=== PATIENT | male | born 1960 | race Caucasian/White ===

== ENCOUNTER 2018-11-18 17:05 | Emergency (ER) | payer BC ==
[2018-11-18] MEDS ORDERED: Sodium Chloride 0.9% 1,000 ML IV ONE (17:17)
[2018-11-18] MEDS ORDERED: Aspirin 81 MG Tab.Chew PO ONE (17:17)
--- NOTE | 2018-11-18 17:17 | EDM.PDOC ---
ED HPI GENERAL MEDICAL PROBLEM - General Chief Complaint: Chest Pain Stated Complaint: CHEST PAIN AND SOB Time Seen by Provider: 11/18/18 17:15 Source of Information: Reports: Patient History Limitations: Reports: No Limitations - History of Present Illness INITIAL COMMENTS - FREE TEXT/NARRATIVE: HISTORY AND PHYSICAL: History of present illness: Patient is a 58-year-old male who presents to the emergency room with complaints of a episode where he felt a "flash of light" and felt disoriented, emotional and weakness at approx 0900. He states he felt confused, he was unable to find words to communicate with his coworkers, and he was emotional and crying. States he was too weak to get up out of the chair. He took about 30 minutes, but then drove himself home. States he fell asleep around 0930 at home until his got off work at 5 PM. encouraged him to come evaluated. He currently has no symptoms of weakness but "just feels off". He denies any fever , chills, chest pain, shortness of breath or cough. Denies any abdominal pain, nausea, vomiting, diarrhea or constipation. He has been eating and drinking appropriately. Denies any headache, visual changes, amnesia or diaphoresis. Review of systems: As per history of present illness and below otherwise all systems reviewed and negative. Past medical history: As per history of present illness and as reviewed below otherwise noncontributory. Surgical history: As per history of present illness and as reviewed below otherwise noncontributory. Social history: See social history for further information Family history: As per history of present illness and as reviewed below otherwise noncontributory. Physical exam: General: Well-developed and well-nourished 58-year-old male. Alert and oriented. Nontoxic appearing and in no acute distress. HEENT: Atraumatic, normocephalic, pupils equal and reactive bilaterally, negative for conjunctival pallor or scleral icterus, mucous membranes moist, TMs normal bilaterally, throat clear, neck supple, nontender, trachea midline. No drooling or trismus noted. No meningeal signs. No hot potato voice noted. Lungs: Clear to auscultation, breath sounds equal bilaterally, chest nontender. Heart: S1S2, regular rate and rhythm without overt murmur Abdomen: Soft, nondistended, nontender. Negative for masses or hepatosplenomegaly. Negative for costovertebral tenderness. Pelvis: Stable nontender. Genitourinary: Deferred. Rectal: Deferred. Skin: Intact, warm, dry. No lesions or rashes noted. Extremities: Atraumatic, negative for cords or calf pain. Neurovascular unremarkable. Neuro: Awake, alert, oriented. Cranial nerves II through XII unremarkable. Cerebellum unremarkable. Motor and sensory unremarkable throughout. Exam nonfocal. Notes: NIH: 0, GCS: 15. Patient's vital signs are stable. He is alert and oriented. No neurological deficits. No weakness, slurred speech, facial droop noted. Patient did have a CT of his chest on 11/16/18 which showed several tiny pulmonary nodules bilaterally, hepatic cyst and hemangioma, otherwise unremarkable. He was seeing Suzie Flores at [facility] for chest congestion/ cough. He states he was on 2 weeks of antibiotics for this, Augmentin and amoxicillin. CT shows no acute findings. There is evidence of ethmoid and maxillary sinusitis. Vital signs are stable. Lab work is unremarkable. Diagnostic findings were shared with patient. We did talk about disposition including admission, he declines stating he would like to go home. He states he will have close follow-up with his primary caregiver. Patient will be discharged home with with understanding he will follow-up with PCP tomorrow, and return to the emergency room if any symptoms return or new symptoms develop. Diagnostics: CBC, CMP, UA, troponin, EKG, head CT Therapeutics: IV fluid, ASA, Rocephin Prescription: None Impression: Sinusitis Plan: 1. Please take an [id number] decongestant. 2. Tylenol and/or ibuprofen as needed for pain and fever management. 3. Make sure you drink plenty of fluids to prevent dehydration. 4. Follow-up with your primary caregiver in the next 1-2 days. Return to the ED as needed and as discussed. Definitive disposition and diagnosis as appropriate pending reevaluation and review of above. Chest Pain Score (Numeric/FACES): 4 - Related Data Allergies Allergy/AdvReac Type Severity Reaction Status Date / Time steroids Allergy Cannot Uncoded 11/29/15 16:21 Remember Home Meds: Home Meds Lisinopril 10 mg PO DAILY 11/18/18 [History] Past Medical History Neurological History: Reports: Other (See Below) Other Neuro History: menningitis - Past Surgical History GI Surgical History: Reports: Appendectomy, Cholecystectomy, Colonoscopy, EGD ED ROS GENERAL - Review of Systems Review Of Systems: ROS reveals no pertinent complaints other than HPI. ED EXAM, GENERAL - Physical Exam Exam: See Below (See dictation) Course - Vital Signs Last Recorded V/S: Last Vital Signs Temp 97.2 F 11/18/18 17:13 Pulse 86 11/18/18 19:33 Resp 16 11/18/18 19:33 BP 121/80 11/18/18 19:33 Pulse Ox 96 11/18/18 19:33 - Orders/Labs/Meds Orders: Active Orders 24 hr Category Date Time Status EKG Documentation Completion [RC] STAT Care 11/18/18 17:17 Active Labs: Laboratory Tests 11/18/18 11/18/18 11/18/18 Range/Units 17:24 17:24 17:53 WBC 8.10 (4.0-11.0) K/uL RBC 4.58 (4.50-5.90) M/uL Hgb 14.5 (13.0-17.0) g/dL Hct 40.8 (38.0-50.0) % MCV 89.1 (80.0-98.0) fL MCH 31.7 (27.0-32.0) pg MCHC 35.5 (31.0-37.0) g/dL RDW Std Deviation 42.7 (28.0-62.0) fl RDW Coeff of Linda 13 (11.0-15.0) % Plt Count 173 (150-400) K/uL MPV 10.00 (7.40-12.00) fL Neut % (Auto) 65.2 (48.0-80.0) % Lymph % (Auto) 26.2 (16.0-40.0) % Barron % (Auto) 5.1 (0.0-15.0) % Eos % (Auto) 3.1 (0.0-7.0) % Baso % (Auto) 0.4 (0.0-1.5) % Neut # (Auto) 5.3 (1.4-5.7) K/uL Lymph # (Auto) 2.1 (0.6-2.4) K/uL Barron # (Auto) 0.4 (0.0-0.8) K/uL Eos # (Auto) 0.3 (0.0-0.7) K/uL Baso # (Auto) 0.0 (0.0-0.1) K/uL Nucleated RBC % 0.0 /100WBC Nucleated RBCs # 0 K/uL Sodium 145 (136-148) mmol/L Potassium 3.8 (3.5-5.1) mmol/L Chloride 111 H (98-107) mmol/L Carbon Dioxide 22.5 (21.0-32.0) mmol/L BUN 18 (7.0-18.0) mg/dL Creatinine 0.9 (0.8-1.3) mg/dL Est Cr Clr Drug Dosing 87.28 mL/min Estimated GFR (MDRD) > 60.0 ml/min Glucose 133 H (74-106) mg/dL Calcium 9.4 (8.5-10.1) mg/dL Total Bilirubin 0.2 (0.2-1.0) mg/dL AST 12 L (15-37) IU/L ALT 18 (14-63) IU/L Alkaline Phosphatase 56 (46-116) U/L Troponin I < 0.050 (0.000-0.056) ng/mL Total Protein 6.9 (6.4-8.2) g/dL Albumin 3.4 (3.4-5.0) g/dL Globulin 3.5 (2.6-4.0) g/dL Albumin/Globulin Ratio 1.0 (0.9-1.6) Urine Color YELLOW Urine Appearance CLEAR Urine pH 6.0 (5.0-8.0) Ur Specific [place] >= 1.030 (1.001-1.035) Urine Protein NEGATIVE (NEGATIVE) mg/dL Urine Glucose (UA) NEGATIVE (NEGATIVE) mg/dL Urine Ketones NEGATIVE (NEGATIVE) mg/dL Urine Occult Blood NEGATIVE (NEGATIVE) Urine Nitrite NEGATIVE (NEGATIVE) Urine Bilirubin NEGATIVE (NEGATIVE) Urine Urobilinogen 0.2 (<2.0) EU/dL Ur Leukocyte Esterase NEGATIVE (NEGATIVE) Meds: Medications Discontinued Medications Generic Name Dose Route Start Last Admin Trade Name Freq PRN Reason Stop Dose Admin Aspirin 324 mg 11/18/18 17:17 11/18/18 17:41 Aspirin PO 11/18/18 17:18 324 mg ONETIME ONE Administration Sodium Chloride 1,000 mls @ 999 mls/hr 11/18/18 17:17 11/18/18 17:40 Normal Saline IV 11/18/18 18:17 999 mls/hr STAT ONE Administration Ceftriaxone Sodium/Dextrose 1 50 mls @ 100 mls/hr 11/18/18 19:09 11/18/18 19: 28 gm/ Premix IV 11/18/18 19:38 100 mls/hr ONETIME ONE Administration Departure - Departure Time of Disposition: 20:10 Disposition: Home, Self-Care 01 Clinical Impression: Sinusitis Qualifiers: Sinusitis location: ethmoidal Chronicity: acute Recurrence: non-recurrent Qualified Code(s): J01.20 - Acute ethmoidal sinusitis, unspecified Instructions: Sinusitis, Adult, [id number] Referrals: PCP,Unknown [Primary Care Provider] - Forms: ED Department Discharge Additional Instructions: The following information is given to patients seen in the emergency department who are being discharged to home. This information is to outline your options for follow-up care. We provide all patients seen in our emergency department with a follow-up referral. The need for follow-up, as well as the timing and circumstances, are variable depending upon the specifics of your emergency department visit. If you don't have a primary care physician on staff, we will provide you with a referral. We always advise you to contact your personal physician following an emergency department visit to inform them of the circumstance of the visit and for follow-up with them and/or the need for any referrals to a consulting specialist. The emergency department will also refer you to a specialist when appropriate. This referral assures that you have the opportunity for follow-up care with a specialist. All of these measure are taken in an effort to provide you with optimal care, which includes your follow-up. Under all circumstances we always encourage you to contact your private physician who remains a resource for coordinating your care. When calling for follow-up care, please make the office aware that this follow-up is from your recent emergency room visit. If for any reason you are refused follow-up, please contact the [facility] Emergency Department at and asked to speak to the emergency department charge nurse. [facility] [address] [place] [address] [facility] [address] [place] [address] 1. Please take an dzmn-ari-xmntray decongestant. 2. Tylenol and/or ibuprofen as needed for pain and fever management. 3. Make sure you drink plenty of fluids to prevent dehydration. 4. Follow-up with your primary caregiver in the next 1-2 days. Return to the ED as needed and as discussed. - My Orders Last 24 Hours: My Active Orders 11/18/18 17:17 EKG Documentation Completion [RC] STAT - Assessment/Plan Last 24 Hours: My Active Orders 11/18/18 17:17 EKG Documentation Completion [RC] STAT
--- NOTE | 2018-11-18 18:34 | CT ---
INDICATION: pain CT HEAD WITHOUT CONTRAST TECHNIQUE: Multiple axial CT images were performed through the head without intravenous contrast administration. COMPARISON: No previous studies are currently available for comparison. FINDINGS: No acute intracranial hemorrhage is identified. No extra-axial collections are evident and there is no mass effect or midline shift. Ventricles are normal in size and configuration. Brain parenchyma appears normal with unremarkable cerna-white differentiation. Osseous structures are within normal limits and no fractures are seen. Included portions of the paranasal sinuses show mucosal thickening within the ethmoid air cells and maxillary sinuses bilaterally consistent with sinusitis. The mastoid air cells are normally aerated. IMPRESSION: 1. No intracranial abnormality identified. 2. Ethmoid and maxillary sinusitis. SANDRA LANG MD [employer] Dictated by Glenn Lang MD @ 11/18/2018 6:30:22 PM Dictated by: Glenn Lang MD @ 11/18/2018 18:34:16 (Electronically Signed)
[2018-11-18 19:03] LABS: CHLORIDE,CL 111 mmol/L (98-107); SODIUM,NA 145 mmol/L (136-148)
[2018-11-18] MEDS ORDERED: cefTRIAXone 1 GM in Premix Bag 1 BAG IV ONE (19:09)
[2018-11-18 20:34] VITALS: BP 115/84
== END 2018-11-18 20:35 | disposition home or self-care (01) ==
LOC: MW.ED 17:05
DX: J01.20 Acute ethmoidal sinusitis, unspecified (principal); Z88.8 Allergy status to other drugs, medicaments and biological substances; Z79.899 Other long term (current) drug therapy
CPT/HCPCS: 36415; 70450; 80053; 81003; 84484; 85025; 93005; 96361; 96374; 99285; A9270; J0696; J7040; 99283

== ENCOUNTER 2021-03-02 16:20 | Emergency (ER) | payer SELFPAY ==
--- NOTE | 2021-03-02 16:57 | EDM.PDOC ---
ED HPI GENERAL MEDICAL PROBLEM - General Chief Complaint: ENT Problem Stated Complaint: RT EAR SWELLING Time Seen by Provider: 03/02/21 16:38 Source of Information: Reports: Patient History Limitations: Reports: No Limitations - History of Present Illness INITIAL COMMENTS - FREE TEXT/NARRATIVE: Patient is a 60-year-old male presents today for right ear pain. Patient states that he was cleaning his ear with a Q-tip and knows that the ear canals become swollen and painful. Patient denies swimming or setting of the water. Patient denies any change in hearing fever chills pain about his ear nausea vomiting or other symptoms. Right ear Pain Score (Numeric/FACES): 6 - Related Data Allergies Allergy/AdvReac Type Severity Reaction Status Date / Time steroids Allergy Cannot Uncoded 03/02/21 16:26 Remember Home Meds: Home Meds Lisinopril 10 mg PO DAILY 11/18/18 [History] Ciprofloxacin/Dexamethasone [Ciprodex Otic Susp] 4 drop OT BID 7 Days #1 bottle 03/02/21 [Rx] lisinopriL [Lisinopril] 10 mg PO DAILY 30 Days #30 tablet 03/02/21 [Rx] Past Medical History HEENT History: Reports: None Cardiovascular History: Reports: Hypertension Respiratory History: Reports: None Genitourinary History: Reports: None Musculoskeletal History: Reports: None Neurological History: Reports: Other (See Below) Other Neuro History: menningitis Psychiatric History: Reports: None Endocrine/Metabolic History: Reports: None Hematologic History: Reports: None Immunologic History: Reports: None Dermatologic History: Reports: None - Infectious Disease History Infectious Disease History: Reports: Chicken Pox - Past Surgical History Head Surgeries/Procedures: Reports: None GI Surgical History: Reports: Appendectomy, Cholecystectomy, Colonoscopy, EGD Social & Family History - Family History Family Medical History: No Pertinent Family History - Tobacco Use Tobacco Use Status *Q: Current Every Day Tobacco User Years of Tobacco use: 38 Packs/Tins Daily: 1 - Caffeine Use Caffeine Use: Reports: Coffee - Recreational Drug Use Recreational Drug Use: No ED ROS ENT - Review of Systems Review Of Systems: See Below Constitutional: Reports: No Symptoms HEENT: Reports: Ear Pain Respiratory: Reports: No Symptoms Endocrine: Reports: No Symptoms GI/Abdominal: Reports: No Symptoms : Reports: No Symptoms Musculoskeletal: Reports: No Symptoms Skin: Reports: No Symptoms Neurological: Reports: No Symptoms Psychiatric: Reports: No Symptoms Hematologic/Lymphatic: Reports: No Symptoms Immunologic: Reports: No Symptoms ED EXAM, ENT - Physical Exam Exam: See Below Exam Limited By: No Limitations General Appearance: Alert, WD/WN, No Apparent Distress Eye Exam: Bilateral Eye: EOMI, PERRL Ears: Canal Discharge, Canal Swelling Mouth/Throat: Normal Inspection, Normal Gums, Normal Lips Head: Atraumatic, Normocephalic Respiratory/Chest: No Respiratory Distress, Lungs Clear, Normal Breath Sounds Cardiovascular: Normal Peripheral Pulses, Regular Rate, Rhythm Neurological: Alert, Oriented, Normal Cognition, Normal Gait Course - Vital Signs Last Recorded V/S: Last Vital Signs Temp 97.4 F 03/02/21 16:27 Pulse 83 03/02/21 17:17 Resp 18 03/02/21 17:17 BP 136/87 03/02/21 17:17 Pulse Ox 96 03/02/21 17:17 - Orders/Labs/Meds Orders: Active Orders 24 hr Category Date Time Status Ciprofloxacin/Dexamethasone [Ciprodex Otic Susp] Med 03/02/21 17:45 Ordered 5 ml EARLF BID Medication Orders Ciprofloxacin/Dexamethasone (Ciprofloxacin/Dexamethasone 0.3-0.1% Otic Susp 7.5 Ml Bottle) 5 ml EARLF BID [facility] Meds: Medications Generic Name Dose Route Start Last Admin Trade Name Luke PRN Reason Stop Dose Admin Ciprofloxacin/Dexamethasone 5 ml 03/02/21 17:45 Ciprofloxacin/Dexamethasone 0.3-0.1% Otic Susp 7.5 Ml Bottle EARLF BID CARMEN - Re-Assessments/Exams Free Text/Narrative Re-Assessment/Exam: 03/02/21 17:42 Patient had a ear wick placed into his canal to help with the eardrops. Patient also has refill of his blood pressure medication lisinopril as he cannot see his PMD due to insurance reasons. Patient will be discharged and can follow-up with primary care physician or return to the ED. Departure - Departure Time of Disposition: 17:43 Disposition: Home, Self-Care 01 Condition: Good Clinical Impression: Otitis externa - Discharge Information *PRESCRIPTION DRUG MONITORING PROGRAM REVIEWED*: Not Applicable *COPY OF PRESCRIPTION DRUG MONITORING REPORT IN PATIENT MAXIMILIANO: Not Applicable Prescriptions: Ciprofloxacin/Dexamethasone [Ciprodex Otic Susp] 4 drop OT BID 7 Days #1 bottle lisinopriL [Lisinopril] 10 mg PO DAILY 30 Days #30 tablet Instructions: Otitis Externa Referrals: PCP,None [Primary Care Provider] - Forms: ED Department Discharge Additional Instructions: The following information is given to patients seen in the emergency department who are being discharged to home. This information is to outline your options for follow-up care. We provide all patients seen in our emergency department with a follow-up referral. The need for follow-up, as well as the timing and circumstances, are variable depending upon the specifics of your emergency department visit. If you don't have a primary care physician on staff, we will provide you with a referral. We always advise you to contact your personal physician following an emergency department visit to inform them of the circumstance of the visit and for follow-up with them and/or the need for any referrals to a consulting spec ialist. The emergency department will also refer you to a specialist when appropriate. This referral assures that you have the opportunity for follow-up care with a specialist. All of these measure are taken in an effort to provide you with optimal care, which includes your follow-up. Under all circumstances we always encourage you to contact your private physician who remains a resource for coordinating your care. When calling for follow-up care, please make the office aware that this follow-up is from your recent emergency room visit. If for any reason you are refused follow-up, please contact the [facility] Emergency Department at and asked to speak to the emergency department charge nurse. Please follow up with your primary care physician. If you do not have a primary care physician, see below: [facility] [address] [place] [id number] [facility] [address] [place] [address] You are seen today for pain in your right ear looks like you have an external ear infection which we will give eardrops. We placed a ear wick into the canal to help keep the canal open so that you can get the eardrops inside. I also refilled your prescription for your blood pressure. If you have any increased pain in your ear worsening symptoms please return to the ED. Sepsis Event Note (ED) - Evaluation Sepsis Screening Result: No Definite Risk - Focused Exam Vital Signs: Vital Signs Temp Pulse Resp BP Pulse Ox 03/02/21 17:17 83 18 136/87 96 03/02/21 16:27 97.4 F 84 18 155/83 H 98 - My Orders Last 24 Hours: My Active Orders 03/02/21 17:45 Ciprofloxacin/Dexamethasone [Ciprodex Otic Susp] 5 ml EARLF BID - Assessment/Plan Last 24 Hours: My Active Orders 03/02/21 17:45 Ciprofloxacin/Dexamethasone [Ciprodex Otic Susp] 5 ml EARLF BID Plan: Patient is a 58-year-old male presents today for right ear pain. Patient has no fevers chills or mastoid tenderness. Seems to be to the external ear. Will place patient on Ciprodex and reassess.
[2021-03-02] MEDS ORDERED: Ciprofloxacin/Dexamethasone 0.3-0.1% Otic Susp 7.5 ML Bottle EARLF SCH (17:45)
[2021-03-02 19:21] VITALS: BP 124/78; PULSE 82
== END 2021-03-02 18:21 | disposition home or self-care (01) ==
LOC: MW.ED 16:20
DX: H60.91 Unspecified otitis externa, right ear (principal); I10 Essential (primary) hypertension; Z88.8 Allergy status to other drugs, medicaments and biological substances; Z79.899 Other long term (current) drug therapy; Z72.0 Tobacco use
CPT/HCPCS: 99282; A9270

== ENCOUNTER 2022-11-07 12:17 | Emergency (ER) | payer MEDICAID ==
[2022-11-07 13:26] LABS: CORONAVIRUS COVID-19 NAA NEGATIVE (NEGATIVE); INFLUENZA A NAA NEGATIVE (NEGATIVE); INFLUENZA B NAA NEGATIVE (NEGATIVE)
[2022-11-07 15:02] VITALS: BP 122/82; PULSE 82
== END 2022-11-07 15:01 | disposition home or self-care (01) ==
LOC: MW.ED 12:17
DX: H10.89 Other conjunctivitis (principal); Z88.8 Allergy status to other drugs, medicaments and biological substances; Z79.899 Other long term (current) drug therapy; Z72.0 Tobacco use; Z20.822 Contact with and (suspected) exposure to COVID-19
CPT/HCPCS: 0240U; 99284; 99283

== ENCOUNTER 2023-08-15 12:27 | Emergency (ER) | payer MEDICARE, OTHER ==
[2023-08-15] MEDS ORDERED: Sodium Chloride 0.9% 10 ML Syringe FLUSH PRN (13:25)
[2023-08-15] MEDS ORDERED: diphenhydrAMINE 50 MG/ML SDV IVPUSH ONE (13:25)
[2023-08-15] MEDS ORDERED: Ketorolac 30 MG/ML SDV IVPUSH ONE (13:25)
[2023-08-15] MEDS ORDERED: Sodium Chloride 0.9% 1,000 ML IV ONE (13:25)
[2023-08-15] MEDS ORDERED: Sodium Chloride 0.9% 2.5 ML Syringe FLUSH PRN (13:25)
[2023-08-15] MEDS ORDERED: Metoclopramide 10 MG/2 ML SDV IVPUSH ONE (13:25)
[2023-08-15 13:40] LABS: BASOPHILS ABSOLUTE AUTO 0.04 K/uL (0.00-0.20); BASOPHILS PERCENT AUTO 0.4 % (0.0-1.0); EOSINOPHILS ABSOLUTE AUTO 0.29 K/uL (0.00-0.45); EOSINOPHILS PERCENT AUTO 2.9 % (0.0-6.0); HEMATOCRIT 40.6 % (42.0-52.0); HEMOGLOBIN 14.4 g/dL (14.0-18.0); IMMATURE GRAN ABSOLUTE AUTO 0.04 K/uL (0.00-0.05); IMMATURE GRAN PERCENT AUTO 0.4 % (0.0-0.4); LYMPHOCYTES ABSOLUTE AUTO 2.41 K/uL (1.00-4.80); LYMPHOCYTES PERCENT AUTO 24.3 % (24.0-44.0); MEAN CORPUSCULAR HGB CONC 35.5 g/dL (32.0-36.0); MEAN CORPUSCULAR VOLUME 87.3 fL (83.0-99.0); MEAN PLATELET VOLUME 9.9 fL (9.4-12.4); MONOCYTES ABSOLUTE AUTO 0.48 K/uL (0.00-0.80); MONOCYTES PERCENT AUTO 4.8 % (0.0-8.0); NEUTROPHILS ABSOLUTE AUTO 6.65 K/uL (1.80-7.70); NEUTROPHILS PERCENT AUTO 67.2 % (41.0-71.0); PLATELET COUNT,PLT 212 K/uL (150-400); RED BLOOD CELL COUNT 4.65 M/uL (4.52-5.90); WHITE BLOOD CELL COUNT,WBC 9.91 K/uL (3.9-11.3)
[2023-08-15 13:43] LABS: APPEARANCE,URINE CLEAR; BILIRUBIN,URINE NEGATIVE (NEGATIVE); COLOR,URINE YELLOW; GLUCOSE,URINE NEGATIVE (NEGATIVE); KETONES,URINE NEGATIVE (NEGATIVE); LEUKOCYTE ESTERASE,URINE NEGATIVE (NEGATIVE); NITRITE,URINE NEGATIVE (NEGATIVE); OCCULT BLOOD,URINE NEGATIVE (NEGATIVE); PROTEIN,URINE NEGATIVE (NEGATIVE); UROBILINOGEN,URINE 0.2 EU/dL (<2.0)
[2023-08-15 14:30] LABS: A/G RATIO 1.1 (0.9-1.6); ALBUMIN 3.6 g/dL (3.4-5.0); BILIRUBIN TOTAL 0.3 mg/dL (0.2-1.0); CALCIUM 9.3 mg/dL (8.5-10.1); CARBON DIOXIDE,CO2 25.5 mmol/L (21.0-32.0); EST CRCL DRUG DOSING (CG) 73.65 mL/min; POTASSIUM,K 4.2 mmol/L (3.5-5.1)
[2023-08-15 15:35] VITALS: BP 149/83; PULSE 81
== END 2023-08-15 15:34 | disposition home or self-care (01) ==
LOC: MW.ED 12:27
DX: G43.909 Migraine, unspecified, not intractable, without status migrainosus (principal); I10 Essential (primary) hypertension; Z79.899 Other long term (current) drug therapy; Z88.8 Allergy status to other drugs, medicaments and biological substances
CPT/HCPCS: 36415; 70450; 80053; 81003; 85025; 96361; 96374; 96375; 99284; J1200; J1885; J2765; J3490; J7030

== ENCOUNTER 2024-03-24 08:11 | Emergency (ER) | payer MEDICARE, OTHER ==
[2024-03-24] MEDS: diphenhydrAMINE 50 MG/ML SDV IVPUSH ONE (08:58)
[2024-03-24] MEDS: Proparacaine 0.5% Ophth Soln 15 ML Bottle EYELF STA (08:58)
[2024-03-24] MEDS: Metoclopramide 10 MG/2 ML SDV IVPUSH ONE (08:58)
[2024-03-24] MEDS: Sodium Chloride 0.9% 1,000 ML IV ONE (08:58)
[2024-03-24] MEDS: Sodium Chloride 0.9% 2.5 ML Syringe FLUSH PRN (08:59)
[2024-03-24] MEDS: Sodium Chloride 0.9% 10 ML Syringe FLUSH PRN (08:59)
[2024-03-24 09:19] LABS: BASOPHILS ABSOLUTE AUTO 0.03 K/uL (0.00-0.20); BASOPHILS PERCENT AUTO 0.3 % (0.0-1.0); EOSINOPHILS ABSOLUTE AUTO 0.13 K/uL (0.00-0.45); EOSINOPHILS PERCENT AUTO 1.1 % (0.0-6.0); HEMOGLOBIN 13.2 g/dL (14.0-18.0); IMMATURE GRAN ABSOLUTE AUTO 0.04 K/uL (0.00-0.05); IMMATURE GRAN PERCENT AUTO 0.3 % (0.0-0.4); LYMPHOCYTES ABSOLUTE AUTO 1.78 K/uL (1.00-4.80); LYMPHOCYTES PERCENT AUTO 15.6 % (24.0-44.0); MEAN CORPUSCULAR HEMOGLOBIN 30.6 pg (28.0-32.0); MEAN CORPUSCULAR HGB CONC 34.7 g/dL (32.0-36.0); MEAN PLATELET VOLUME 9.9 fL (9.4-12.4); MONOCYTES PERCENT AUTO 5.2 % (0.0-8.0); NEUTROPHILS ABSOLUTE AUTO 8.85 K/uL (1.80-7.70); NEUTROPHILS PERCENT AUTO 77.5 % (41.0-71.0); PLATELET COUNT,PLT 195 K/uL (150-400); RED BLOOD CELL COUNT 4.32 M/uL (4.52-5.90); WHITE BLOOD CELL COUNT,WBC 11.43 K/uL (3.9-11.3)
[2024-03-24 09:40] LABS: A/G RATIO 0.8 (0.9-1.6); ALBUMIN 3.2 g/dL (3.4-5.0); BILIRUBIN TOTAL 0.4 mg/dL (0.2-1.0); CALCIUM 8.5 mg/dL (8.5-10.1); CARBON DIOXIDE,CO2 26.7 mmol/L (21.0-32.0); CREATININE 0.9 mg/dL (0.8-1.3); EST CRCL DRUG DOSING (CG) 81.83 mL/min; POTASSIUM,K 3.7 mmol/L (3.5-5.1); PROTEIN TOTAL,TP 7.2 g/dL (6.4-8.2)
[2024-03-24] MEDS: Iopamidol 755 MG/ML 500 ML Multipack Bottle IVPUSH STA (10:47)
[2024-03-24] MEDS ORDERED: Naloxone 0.4 MG/ML SDV IVPUSH PRN (10:59)
[2024-03-24] MEDS: Morphine 4 MG/ML Syringe IVPUSH PRN (11:48)
[2024-03-24 11:52] VITALS: BP 155/73; PULSE 89
[2024-03-24] MEDS: Ampicillin/Sulbactam Na 3 GM in Sodium Chloride 0.9% 100 ML IV ONE (13:17)
[2024-03-24] MEDS: Timolol Maleate 0.5% Ophth Soln 5 ML Bottle EYELF STA (13:18)
== END 2024-03-24 14:14 ==
LOC: MW.ED 08:11
DX: H05.012 Cellulitis of left orbit (principal); I10 Essential (primary) hypertension; Z88.8 Allergy status to other drugs, medicaments and biological substances; Z79.899 Other long term (current) drug therapy; Z90.49 Acquired absence of other specified parts of digestive tract
CPT/HCPCS: 36415; 70450; 70487; 80053; 85025; 87040; 96361; 96365; 96375; 99285; J0295; J1100; J1200; J2270; J2765; J3490; J7030; Q9967; 87077; 87186

== ENCOUNTER 2024-11-12 09:20 | Emergency (ER) | payer MEDICARE, OTHER ==
[2024-11-12 10:12] LABS: HEMOGLOBIN 12.7 g/dL (14.0-18.0); MEAN CORPUSCULAR HEMOGLOBIN 30.3 pg (28.0-32.0); MEAN CORPUSCULAR HGB CONC 34.3 g/dL (32.0-36.0); MEAN CORPUSCULAR VOLUME 88.3 fL (83.0-99.0); PLATELET COUNT,PLT 176 K/uL (150-400); RED BLOOD CELL COUNT 4.19 M/uL (4.52-5.90); WHITE BLOOD CELL COUNT,WBC 6.46 K/uL (3.9-11.3)
[2024-11-12 10:28] LABS: CALCIUM 8.5 mg/dL (8.5-10.1); CARBON DIOXIDE,CO2 28.3 mmol/L (21.0-32.0); EST CRCL DRUG DOSING (CG) 72.66 mL/min; POTASSIUM,K 4.1 mmol/L (3.5-5.1)
[2024-11-12 11:08] LABS: APPEARANCE,URINE CLEAR; BILIRUBIN,URINE NEGATIVE (NEGATIVE); COLOR,URINE YELLOW; GLUCOSE,URINE NEGATIVE (NEGATIVE); KETONES,URINE NEGATIVE (NEGATIVE); LEUKOCYTE ESTERASE,URINE NEGATIVE (NEGATIVE); NITRITE,URINE NEGATIVE (NEGATIVE); OCCULT BLOOD,URINE NEGATIVE (NEGATIVE); PROTEIN,URINE NEGATIVE (NEGATIVE); UROBILINOGEN,URINE 0.2 EU/dL (<2.0)
[2024-11-12 11:15] LABS: RBC,URINE 0-1 (0-2/HPF); WBC,URINE 0-1 (0-5/HPF)
[2024-11-12 11:16] LABS: BACTERIA,URINE RARE (NEGATIVE); EPITHELIAL CELLS,URINE OCCASIONAL (NONE-FEW)
[2024-11-12 11:17] VITALS: BP 129/78; PULSE 84
== END 2024-11-12 12:30 | disposition home or self-care (01) ==
LOC: MW.ED 09:20
DX: R10.30 Lower abdominal pain, unspecified (principal); I10 Essential (primary) hypertension; F17.290 Nicotine dependence, other tobacco product, uncomplicated; Z90.49 Acquired absence of other specified parts of digestive tract; Z79.899 Other long term (current) drug therapy; Z88.8 Allergy status to other drugs, medicaments and biological substances
CPT/HCPCS: 36415; 80048; 81001; 85027; 99284